=== PATIENT | female | born 1995 | race Caucasian/White ===

== ENCOUNTER 2025-05-04 12:28 | Emergency (ER) | payer OTHER, SELFPAY ==
--- NOTE | ~2025-05-04 | CT_ITS ---
CLINICAL HISTORY: SBO CT abdomen and pelvis with IV contrast. COMPARISON: None provided. FINDINGS: Partially visualized lung bases are unremarkable. No focal hepatic lesion. Normal gallbladder. Normal spleen. Normal pancreas. Normal adrenal glands. Symmetric renal enhancement. No hydronephrosis. Appendix is not identified. No bowel obstruction. Mild colonic stool burden. Oral contrast has progressed into the ascending colon. No mesenteric or retroperitoneal lymphadenopathy. Normal abdominal aorta. Urinary bladder is unremarkable given degree of distention. No adnexal mass. Small fat containing umbilical hernia. No acute fracture or suspicious osseous abnormality. IMPRESSION: 1. No cause for patient's symptoms identified. No bowel obstruction. This document has been electronically signed by: Rick Kirk MD on 05/04/2025 19:01:02
[2025-05-04 12:46] VITALS: BP 140/96; PULSE 117; RESP 20; TEMP 36.7; O2SAT 99; BMI 27.4
--- NOTE | 2025-05-04 12:53 | ED.ABDPAIN ---
HPI - Abdominal Pain General Chief Complaint: Abdominal Pain Stated Complaint: Stomach pain Time Seen by Provider: 05/04/25 14:24 Source: patient History of Present Illness ED Provider: Daylin Woods PA-C HPI narrative: Patient was reporting to the emergency department today for evaluation of 10/10 stabbing bilateral lower quadrant pain. Started approximately 08:00 this morning. She reports the only thing that relieves it is standing down in a straight position otherwise during the position sitting standing and walking makes it worse. While patient is sexually active she is denying any concern for and denies any sexual assault. Is on control and does not get her menses. She reports last meal being of normal food last night which was pizza for her which she has tolerated several times in the past. She went to bed feeling fine. She even woke up feeling just fine and then right before work it started. She is able to pass gas but does not feel gassy. Her abdomen does feel bloated in the lower side. She is denying any vaginal symptoms and has no dysuria urgency or frequency. She is denying any associated flank pain. She has not had any fevers chills. She does not feel nauseous no vomiting and no diarrhea. She reports yesterday was a normal bowel movement she can have bowel movements every 1-3 days which is normal for her. She has not noticed any blood. She has no history of intra-abdominal pathology in the past. She has not taken anything to relieve it. Pain is constant if she tries to move but goes down to a 1/10 if she does not move at all. MD elicited complaint: abdominal pain Related Data Previous Rx's ?Medication ?Instructions ?Recorded nitrofurantoin 100 mg PO BID #9 caps 05/04/25 monohydrate/macrocrystals 100 mg capsule (Macrobid) phenazopyridine 100 mg tablet 100 mg PO TID PRN dysuria #9 tabs 05/04/25 (Pyridium) Allergies Allergy/AdvReac Type Severity Reaction Status Date / Time No Known Allergies Allergy Verified 05/04/25 12:56 Review of Systems Review of Systems Yes all other systems are reviewed and are negative PMFSH Past Medical History Attestation statement: The following information was validated with the patient. Source: old records reviewed and nursing notes reviewed Social History Social History Smoked in Last 30 Days: No Use of substances other than those prescribed or required for medical reasons: No Advance Directives: No Advance Directives Information Provided: Yes Do you have a plan to hurt others: No Plan Physical Exam ED Vital Signs: Vital Signs - 24 hr 05/04/25 12:46 05/04/25 14:24 05/04/25 16:22 Temperature 98.0 F 97.8 F 97.8 F Pulse Rate 117 H 94 84 Respiratory Rate 20 18 18 Blood Pressure 140/96 H 117/72 119/72 Pulse Oximetry 99 95 97 Oxygen Delivery Method Room Air Room Air Room Air 05/04/25 18:47 Temperature 97.9 F Pulse Rate 97 Respiratory Rate 18 Blood Pressure 121/72 Pulse Oximetry 99 Oxygen Delivery Method Room Air BMI result Body Mass Index 27.4 General: Appears in no acute distress, appears well nourished body habitus is obese, appears stated age. No septic or ill-appearing. Vitals reviewed normal, PMH/Social and Surgical hx reviewed including allergies and current medications. - this is patient's 1st visit here no prior notes available to review Head: Normocephalic, no obvious trauma or skin lesions noted. Eyes: EOMI, normal conjunctiva sclera and cornea, not pale no scleral icterus noted ENMT: moist oral mucosa Neck: trachea midline no lymphadenopathy moving neck in all directions without difficulty no nuchal rigidity Cardiovascular: peripheral perfusion normal, Regular heart rate regular rhythm Respiratory: no respiratory distress nontender chest wall lungs clear to auscultation bilaterally Abdomen: Obese abdomen bilateral lower quadrants are tender with rebound but otherwise negative peritoneal signs no skin lesions noted no ovarian tenderness no suprapubic tenderness Extremities: warm and moving without difficulty unless otherwise detailed in physical exam if applicable. Psych: Cooperative very friendly Neuro: Alert and oriented. Course Course Course Narrative: 05/04/25 1253 LAM Evans This is a Rapid Medical Examination (RME) performed by Humza Reveles PA-C in triage. Full HPI, ROS, assessment and treatment plan per primary provider in the Main ED. Hx: 29 yo F here for eval of RLQ abd pain since 0800 this mrlinda. She is on control, does not get her menses. sexually active. no urinary sx. last BM yesterday, passing flatus. no hx of abd surgeries. PE/vitals: tearful, abd soft, ND/NT, no rebound or guarding. Plan: labs UA Medical Decision Making Medical Decision Making [facility] Narrative: Well-appearing 29-year-old female with PMH significant for obesity presenting to the emergency department today for evaluation of acute onset of lower abdominal pain since this morning. Upon arrival to ED patient is afebrile and well-appearing vital signs that are normal and reassuring. She does not appear toxic or ill. Given her chief complaint of abdominal discomfort abdominal labs were initiated from triage. On physical exam she does have tender bilateral lower quadrants. She is without any surgical history. She denies any symptoms. At this time pain is well-controlled and she is well hydrated does not appear hypotensive or septic requiring empiric IV fluids or antibiotics. She has declined any necessity for analgesic relief. Patient's labs so far reassuring there is no evidence of leukocytosis, anemia, metabolic dysfunction, or ALYSSIA. is negative. Urine could be suggestive of UTI however patient denies symptoms we will discuss potential treatment versus watch and wait for your pathogen with the patient and we will send reflex culture. CT results still pending @1900. Preliminary read by myself no acute intra-abdominal pathology noted patient was re-evaluated at bedside still doing well no changes. Denies feeling nauseous. 1928: IMPRESSION: No cause for patient's symptoms identified. No bowel obstruction. These results were discussed with patient at bedside and in discussing that concern for the urinalysis patient has never had a UTI before therefore would not likely recognize the pain that she has had as a pelvic or bladder pain therefore we will treat for a urinary tract infection given 1st dose here. Patient is continued to be well and tolerate p.o. fluids I did not feel she met admission criteria. She has been given reasons to return to the emergency department and follow up with PCP. She demonstrated verbal understanding of the plan and agreed she was discharged home stable. Differential Diagnosis Differential Diagnoses: The differential diagnosis associated with the presentation includes UTI/ vaginitis/ STI constipation SBO colonic spasms diverticulitis colititis appendicitis somatic pain Admission/Observation Consideration of admission/observation: Escalation of care including admission/observation considered Patient would have been admitted to the hospital had her work up had any findings where hospital admission was appropriate and her clinical presentation warranted hospital admission. Lab Data [facility] Lab Attestation statement: I reviewed the patient's lab results. No leukocytosis or anemia noted, no evidence of hepatobiliary disease, pancreatitis, metabolic dysfunction, or kidney dysfunction. Urinalysis shows trace amount of leukocytes with potential for inflammation versus contamination versus possible infection however patient denies any symptoms. Could be an atypical presentation 05/04/25 12:57 05/04/25 12:57 Labs: Lab Results 05/04/25 05/04/25 Range/Units 12:57 15:29 WBC 9.4 (4.8-10.8) X10*3/uL RBC 4.53 (4.20-5.50) X10*6/uL Hgb 14.7 (12.0-16.0) g/dl Hct 40.6 (37.0-47.0) % MCV 89.6 (80.0-98.0) fL MCH 32.5 (27.0-33.0) pg MCHC 36.2 H (31.0-35.0) g/dl RDW 11.8 (11.0-16.0) % Plt Count 380 (160-400) X10*3/uL MPV 8.4 L (9.4-12.3) fL Immature Gran % (Auto) 0.3 (0.0-0.4) % Neut % (Auto) 58.3 (45-73) % Lymph % (Auto) 34.1 (20-40) % [place] % (Auto) 5.9 (2-11) % Eos % (Auto) 0.5 (0-4) % Baso % (Auto) 0.9 (0-2) % Lymph # (Auto) 3.2 (1.2-4.9) X10*3/uL [place] # (Auto) 0.6 (0.1-1.2) X10*3/uL Eos # (Auto) 0.1 (0.0-0.4) X10*3/uL Baso # (Auto) 0.1 (0.0-0.2) X10*3/uL Abs Immat Gran (auto) 0.03 (0.00-0.03) X10*3/uL Absolute Neuts (auto) 5.5 (2.0-8.3) x10*3/uL Absolute Nucleated RBC 0.000 (0.0-0.012) X10*3/uL Nucleated RBC % (auto) 0.0 (0.0-0.2) /100WBC Sodium 139 (135-145) mmol/L Potassium 3.6 (3.3-5.1) mmol/L Chloride 108 (96-108) mmol/L Carbon Dioxide 21 L (22-29) mmol/L Anion Gap 14 (12-20) BUN 10 (9-16) mg/dL Creatinine 0.65 (0.5-1.4) mg/dL Estim Creat Clear Calc 137.3 Estimated GFR > 60 Random Glucose 96 (60-115) mg/dL Calcium 9.8 (8.4-10.2) mg/dL Magnesium 1.8 (1.6-2.6) mg/dL Total Bilirubin 0.6 (0.0-1.0) mg/dL AST 17 (5-31) U/L ALT 17 (0-31) U/L Alkaline Phosphatase 41 (39-117) U/L Total Protein 7.5 (6.5-8.0) g/dL Albumin 4.6 (3.5-5.0) g/dL Lipase 27 (8-78) U/L Beta HCG, Quant < 2 mIU/mL Urine Color Yellow Urine Appearance Cloudy Urine pH 8.5 (5.0-9.0) Ur Specific [place] 1.020 (1.005-1.025) Urine Protein Negative (Neg-Trace) mg/dL Urine Glucose (UA) Negative (Negative) mg/dL Urine Ketones Trace (Negative) mg/dL Urine Blood Negative (Negative) Urine Nitrite Negative (Negative) Ur Leukocyte Esterase Small (1+) H (Negative) Urine RBC 0-2 (0-2) /HPF Urine WBC 11-20 H (0-5) /HPF Ur Squamous Epith Cells 6-10 (0-2) /HPF Urine Bacteria 1+ (None Seen) Hyaline Casts 0-2 (0-2) /LPF Radiology Impression Discussion of test interpretation with radiology: I have reviewed the radiologist's reading. Radiologist Impression: No obvious intra-abdominal pathology will await final read Medications Administered Discontinued Medications Generic Name Dose Route Start Last Admin Trade Name Freq PRN Reason Stop Dose Admin Diatrizoate Meglum/Diatrizoate Sod 30 ml 05/04/25 18:26 05/04/25 18:26 Diatrizoate Meglumine, Sodium 30 Ml Solution PO 05/04/25 18:27 30 ml ONCE ONE Administration Iohexol 85 ml 05/04/25 18:25 05/04/25 18:25 Iohexol 350 Mg/Ml 100 Ml Infus..Btl IV 05/04/25 18:26 85 ml ONCE ONE Administration Discharge Plan Discharge Clinical Impression: Abdominal pain Qualifiers: Abdominal location: lower abdomen, unspecified Qualified Code(s): R10.30 - Lower abdominal pain, unspecified Acute cystitis Qualifiers: Hematuria presence: with hematuria Qualified Code(s): N30.01 - Acute cystitis with hematuria Patient Disposition: Home, Self-Care Instructions: Urinary Tract Infection in Women (ED) Additional Instructions: You were seen in the emergency department today for abdominal discomfort. You had abdominal labs and a CT of your abdomen and pelvis. There is no evidence of kidney or liver dysfunction, hepatobiliary disease pancreatitis or bowel infection. You are not . Your urinalysis that you had was suggestive of a urinary tract infection. Your CT results showed no acute intra-abdominal pathology. As you have never had a UTI before they can be hard to recognize the symptoms for the 1st time. They are treating you for urinary tract infection. You were given your 1st dose of antibiotic here and will continue this for 10 doses in total twice a day. As you were given your 1st dose here your last dose will be for a morning. I have also given you Pyridium which is an analgesic for the urinary tract they will turn your urine orange do not be alarmed by this once his flush that ear system your urine color wheel turned back to normal this is a side effect of the medication. If for any reason you develop worsening pain fevers or the inability to tolerate p.o. fluids please return to the emergency department. Hope you feel better soon! Prescriptions: New nitrofurantoin monohyd/m-cryst [Macrobid] 100 mg capsule 100 mg PO BID Qty: 9 0RF Rx Instructions: must administer with a meal/food, 1st dose given in ED phenazopyridine [Pyridium] 100 mg tablet 100 mg PO TID PRN (Reason: dysuria) Qty: 9 0RF Referrals: Freeman García MD [Primary Care Provider, Medical] Stand Alone Forms: Work/School Release Print Language: Vietnamese
[2025-05-04 13:02] LABS: MANUAL DIFF FLAG NO
[2025-05-04 13:04] LABS: Hematocrit 40.6 % (37.0-47.0); Hemoglobin 14.7 g/dl (12.0-16.0); Imm Gran Abs Auto 0.03 X10*3/uL (0.00-0.03); Imm Gran Pct Auto 0.3 % (0.0-0.4); Lymphocytes Absolute Auto 3.2 X10*3/uL (1.2-4.9); Mean Corpuscular HGB Conc 36.2 g/dl (31.0-35.0); Mean Corpuscular Hemoglobin 32.5 pg (27.0-33.0); Mean Corpuscular Volume 89.6 fL (80.0-98.0); NRBC Abs Auto 0.000 X10*3/uL (0.0-0.012); NRBC Pct Auto 0.0 /100WBC (0.0-0.2); Platelet Count 380 X10*3/uL (160-400); Red Blood Count 4.53 X10*6/uL (4.20-5.50); White Blood Count 9.4 X10*3/uL (4.8-10.8)
[2025-05-04 13:17] LABS: Alanine Aminotransferase 17 U/L (0-31); Albumin Level 4.6 g/dL (3.5-5.0); Alkaline Phosphatase 41 U/L (39-117); Anion Gap 14 (12-20); Aspartate Amino Transferase 17 U/L (5-31); Blood Urea Nitrogen 10 mg/dL (9-16); Calcium 9.8 mg/dL (8.4-10.2); Carbon Dioxide 21 mmol/L (22-29); Chloride 108 mmol/L (96-108); Creatinine Clr Calc Pharmacy 137.3; Estimated Glomerular Filt Rate > 60; Lipase 27 U/L (8-78); Magnesium 1.8 mg/dL (1.6-2.6); Potassium 3.6 mmol/L (3.3-5.1); Sodium 139 mmol/L (135-145); Total Protein 7.5 g/dL (6.5-8.0)
[2025-05-04 14:24] VITALS: BP 117/72; PULSE 94; RESP 18; TEMP 36.6; O2SAT 95
[2025-05-04 15:40] LABS: Appearance Urine Cloudy; Glucose Urine UA Negative (Negative); PH 8.5 (5.0-9.0); Specific Gravity - Urine 1.020 (1.005-1.025); UMIC TRIGGER UACC YES
[2025-05-04 15:53] LABS: UACC Culture Trigger YES
[2025-05-04 16:22] VITALS: BP 119/72; PULSE 84; RESP 18; TEMP 36.6; O2SAT 97
[2025-05-04] MEDS: iohexoL 350 MG/ML 100 ML INFUS..BTL 85 ML IV (18:25)
[2025-05-04 18:47] VITALS: BP 121/72; PULSE 97; RESP 18; TEMP 36.6; O2SAT 99
[2025-05-04 19:56] VITALS: BP 114/78; PULSE 78; RESP 18; TEMP 36.6; O2SAT 98
[2025-05-04 20:16] VITALS: BP 114/78; PULSE 78; RESP 18; TEMP 36.6; O2SAT 98
== END 2025-05-04 20:17 | disposition home or self-care (01) ==
PROVIDERS: Physician Assistant Medical; Emergency Provider Emergency Medicine; PCP Internal Medicine
DX: N30.01 Acute cystitis with hematuria (principal); R10.30 Lower abdominal pain, unspecified; R10.2 Pelvic and perineal pain; Z79.899 Other long term (current) drug therapy
CPT/HCPCS: 36415; 74177; 80053; 81001; 83690; 83735; 84702; 85025; 87086; 99284; 99285; Q9967

== ENCOUNTER → 2025-05-04 15:02 | Outpatient (BNV) | payer OTHER, SELFPAY | PROVIDERS: Emergency Provider Emergency Medicine; PCP Internal Medicine; Visit Provider Radiology Diagnostic Radiology | DX: K59.00 Constipation, unspecified (principal) | CPT/HCPCS: 74177 ==

== ENCOUNTER 2025-09-30 01:08 | Emergency (ER) | payer SELFPAY ==
--- NOTE | ~2025-09-30 | XR_ITS ---
CLINICAL HISTORY: chest pain 1 view chest x-ray Comparison: None provided Findings: The lungs are clear. Normal size heart. No acute fracture. IMPRESSION: 1. No acute findings. This document has been electronically signed by: Sanjana Blackwood MD on 09/30/2025 04:27:07
[2025-09-30 01:10] VITALS: BP 158/83; PULSE 96; RESP 20; TEMP 36.5; O2SAT 99; BMI 27.4
--- NOTE | 2025-09-30 01:16 | ECG_ITS ---
Test Reason : cp/sob Blood Pressure : */* mmHG Vent. Rate : 92 BPM Atrial Rate : 92 BPM P-R Int : 146 ms QRS Dur : 88 ms QT Int : 380 ms P-R-T Axes : 38 -23 11 degrees QTcB Int : 469 ms Normal sinus rhythm Minimal voltage criteria for LVH, may be normal variant ( R in aVL ) Borderline ECG No previous ECGs available Referred By: Generic ED Physician Electronically Signed By: KERRI MENDIOLA MD
[2025-09-30 01:31] LABS: Hematocrit 42.8 % (37.0-47.0); Hemoglobin 14.8 g/dl (12.0-16.0); Imm Gran Abs Auto 0.03 X10*3/uL (0.00-0.03); Imm Gran Pct Auto 0.3 % (0.0-0.4); Lymphocytes Absolute Auto 1.7 X10*3/uL (1.2-4.9); MANUAL DIFF FLAG NO; Mean Corpuscular HGB Conc 34.6 g/dl (31.0-35.0); Mean Corpuscular Hemoglobin 31.8 pg (27.0-33.0); Mean Corpuscular Volume 92.0 fL (80.0-98.0); NRBC Abs Auto 0.000 X10*3/uL (0.0-0.012); NRBC Pct Auto 0.0 /100WBC (0.0-0.2); Platelet Count 335 X10*3/uL (160-400); Red Blood Count 4.65 X10*6/uL (4.20-5.50); White Blood Count 10.8 X10*3/uL (4.8-10.8)
[2025-09-30 01:47] LABS: Alanine Aminotransferase 47 U/L (0-31); Albumin Level 4.7 g/dL (3.5-5.0); Alkaline Phosphatase 66 U/L (39-117); Anion Gap 13 (12-20); Aspartate Amino Transferase 36 U/L (5-31); Blood Urea Nitrogen 11 mg/dL (9-16); Calcium 9.7 mg/dL (8.4-10.2); Carbon Dioxide 22 mmol/L (22-29); Chloride 108 mmol/L (96-108); Creatinine Clr Calc Pharmacy 134.0; Estimated Glomerular Filt Rate > 60; Potassium 4.0 mmol/L (3.3-5.1); Sodium 139 mmol/L (135-145); Total Protein 7.4 g/dL (6.5-8.0)
[2025-09-30 01:53] LABS: Troponin-I High Sensitivity < 2.7 ng/L (<3.5-17.0)
[2025-09-30 02:07] LABS: Resp Syncy Virus RNA Qual PCR NEGATIVE (Negative); SARS COV2 PCR INHOUSE NEGATIVE (Negative)
--- NOTE | 2025-09-30 02:16 | PC.NURSE ---
RN went to bring patient back to a room. registration stated patient had left, did not want to stay to be seen.
== END 2025-09-30 02:29 | disposition left against medical advice (07) ==
PROVIDERS: Emergency Provider Emergency Medicine; PCP Internal Medicine
DX: R06.00 Dyspnea, unspecified (principal); J45.909 Unspecified asthma, uncomplicated; Z03.818 Encounter for observation for suspected exposure to other biological agents ruled out; Z53.21 Procedure and treatment not carried out due to patient leaving prior to being seen by health care provider
CPT/HCPCS: 71045; 80053; 84484; 85025; 87637; 93005; 99283

== ENCOUNTER → 2025-09-30 01:16 | Outpatient (BNV) | payer SELFPAY | PROVIDERS: Emergency Provider Emergency Medicine; PCP Internal Medicine; Visit Provider Internal Medicine Cardiovascular Disease | DX: R07.9 Chest pain, unspecified (principal); R06.02 Shortness of breath | CPT/HCPCS: 93010 ==

== ENCOUNTER → 2025-09-30 01:16 | Outpatient (BNV) | payer SELFPAY | PROVIDERS: Emergency Provider Emergency Medicine; PCP Internal Medicine; Visit Provider Radiology Diagnostic Radiology | DX: R07.9 Chest pain, unspecified (principal) | CPT/HCPCS: 71045 ==